=== PATIENT | male | born 1970 | race Caucasian/White ===

== ENCOUNTER 2018-07-10 07:52 | Emergency (ER) | payer MEDICAID ==
[2018-07-10] MEDS ORDERED: 0.9 % SODIUM CHLORIDE 1,000 ML BAG IV ONE (08:11)
[2018-07-10 08:21] LABS: HEMATOCRIT 49.8 % (42.0-52.0); MEAN CELL VOLUME 92.7 fl (81-97); MEAN CORPUSCULAR HEMOGLOBIN 31.7 pg (27-33); MEAN CORPUSCULAR HGB CONC 34.1 g/dl (32-36); PLATELET COUNT 371 K/uL (130-400); RED BLOOD COUNT 5.37 M/uL (4.40-5.70)
[2018-07-10 08:24] LABS: WHITE BLOOD COUNT W/O DIFF 27.6 K/uL (4.2-12.2)
[2018-07-10] MEDS ORDERED: PIPERACILLIN SODIUM/TAZOBACTAM 4.5 GM in 0.9 % SODIUM CHLORIDE 100ML 100 ML IVPB ONE (08:33)
[2018-07-10 08:37] LABS: BLOOD UREA NITROGEN 30 mg/dL (6-20); CREATININE 1.1 mg/dL (0.7-1.2); EST GLOMERULAR FILTRATION RATE > 60 mL/min
[2018-07-10 08:38] LABS: LIPASE 81 U/L (13-60); TOTAL PROTEIN 8.7 g/dL (6.6-8.7)
[2018-07-10 08:40] LABS: GLUCOSE,RANDOM 148 mg/dL (74-109)
[2018-07-10 08:42] LABS: ALT/SGPT 13 U/L (<41); AST/SGOT 14 U/L (10.0-50.0)
[2018-07-10 08:43] LABS: ALBUMIN 4.8 g/dL (4.0-5.0); ALKALINE PHOSPHATASE 75 U/L (40-129); BILIRUBIN,DIRECT < 0.2 mg/dL (0-0.3)
--- NOTE | 2018-07-10 08:45 | Emergency Department Record ---
History of Present Illness - General Chief Complaint: Abdominal Pain Stated Complaint: ABD PAIN RIGHT SIDE Time Seen by Provider: 07/10/18 08:10 Source: Patient, Family Mode of Arrival: Wheelchair Limitations: No limitations - History of Present Illness Initial Comments: pt awoke at 3am w severe pain in his r abd that radiates to his r neck and shoulder. it is constant 20/10 pain that gets worse w movement and breathing. he has nausea but no v/c/d. he denies motrin use or htn. he has never had anything like this MD Complaint: Abdominal pain Onset/Timin -: Hour(s) Location: RUQ, RLQ Radiation: Other (neck and r shoulder) Migration to: Other Severity scale (1-10): >10 Consistency: Constant Improves With: Nothing Worsens With: Movement Associated Symptoms: Nausea - Related Data Home Medications Medication Instructions Recorded Confirmed Last Taken No Home Med [NO HOME MEDS] 07/10/18 07/10/18 Unknown Allergies Allergy/AdvReac Type Severity Reaction Status Date / Time No Known Drug Allergies Allergy Verified 07/10/18 09:12 Travel Screening - Travel/Exposure Within Last 30 Days Have you traveled within the last 30 days?: No - Travel/Exposure Within Last Year Have you traveled outside the [place] in the last year?: No - Additonal Travel Details Have you been exposed to anyone with a communicable illness?: No Review of Systems Reviewed: No additional complaints except as noted below Constitutional: Reports: As per HPI. Denies: Chills, Fever, Malaise, Night sweats, Weakness, Weight change Eyes: Reports: As per HPI. Denies: Eye discharge, Eye pain, Photophobia, Vision change ENT: Reports: As per HPI. Denies: Congestion, Dental pain, Ear pain, Epistaxis , Hearing loss, Throat pain Respiratory: Reports: As per HPI. Denies: Cough, Dyspnea, Hemoptysis, Stridor, Wheezes Cardiovascular: Reports: As per HPI. Denies: Arrhythmia, Chest pain, Dyspnea on exertion, Edema, Murmurs, Orthopnea, Palpitations, Paroxysmal nocturnal dyspnea, Rheumatic Fever, Syncope Endocrine: Reports: As per HPI. Denies: Fatigue, Heat or cold intolerance, Polydipsia, Polyuria Gastrointestinal: Reports: As per HPI, Abdominal pain. Denies: Constipation, Diarrhea, Hematemesis, Hematochezia, Melena, Nausea, Vomiting Genitourinary: Reports: As per HPI. Denies: Dysuria, Frequency, Hematuria, Incontinence, Retention, Testicular pain, Testicular mass, Urgency Musculoskeletal: Reports: As per HPI, Neck pain. Denies: Arthralgia, Back pain , Gout, Joint swelling, Myalgia Skin: Reports: As per HPI. Denies: Bruising, Change in color, Change in hair/ nails, Lesions, Pruritus, Rash Neurological: Reports: As per HPI. Denies: Abnormal gait, Confusion, Headache, Numbness, Paresthesias, Seizure, Tingling, Tremors, Vertigo, Weakness Psychiatric: Reports: As per HPI. Denies: Anxiety, Auditory hallucinations, Depression, Homicidal thoughts, Suicidal thoughts, Visual hallucinations Hematological/Lymphatic: Reports: As per HPI. Denies: Anemia, Blood Clots, Easy bleeding, Easy bruising, Swollen glands Past Medical History - SOCIAL HISTORY Smoking Status: Light tobacco smoker (<10/day) Alcohol Use: None Drug Use: None Family Medical History Any Significant Family History?: No Physical Exam - General General Appearance: Alert, Oriented x3, Cooperative, Severe distress - Head Head exam: Normal inspection - Eye Eye exam: Normal appearance, PERRL, EOMI Pupils: Normal accommodation - ENT ENT exam: Normal exam, Mucous membranes moist, Normal external ear exam, Normal orophraynx Ear exam: Normal external inspection. negative: External canal tenderness Nasal Exam: Normal inspection. negative: Discharge, Sinus tenderness Mouth exam: Normal external inspection, Tongue normal Teeth exam: Normal inspection. negative: Dental caries Throat exam: Normal inspection. negative: Tonsillar erythema, Tonsillar exudate - Neck Neck exam: Normal inspection, Full ROM. negative: Tenderness - Respiratory Respiratory exam: Normal lung sounds bilaterally. negative: Respiratory distress - Cardiovascular Cardiovascular Exam: Regular rate, Normal rhythm, Normal heart sounds - GI/Abdominal GI/Abdominal exam: Guarding, Rebound, Rigid, Tenderness - Rectal Rectal exam: Deferred - exam: Deferred - Extremities Extremities exam: Normal inspection, Full ROM, Normal capillary refill. negative: Tenderness - Back Back exam: Reports: Normal inspection, Full ROM. Denies: Muscle spasm, Rash noted, Tenderness - Neurological Neurological exam: Alert, CN II-XII intact, Normal gait, Oriented X3 - Psychiatric Psychiatric exam: Normal affect, Normal mood - Skin Skin exam: Dry, Intact, Normal color, Warm Course Vital Signs 07/10/18 07:52 Temperature 98.5 F Pulse Rate 83 Respiratory 20 Rate Blood Pressure 118/90 Pulse Ox 96 - Reevaluation(s) Reevaluation #1: 07/10/18 09:25 ct shows free air and fluid Medical Decision Making - Lab Data Result diagrams: 07/10/18 08:00 07/10/18 08:00 Lab Results 07/10/18 Range/Units 08:00 WBC 27.6 H* (4.2-12.2) K/uL RBC 5.37 (4.40-5.70) M/uL Hgb 17.0 (14.0-18.0) gm/dl Hct 49.8 (42.0-52.0) % MCV 92.7 (81-97) fl MCH 31.7 (27-33) pg MCHC 34.1 (32-36) g/dl RDW 15.0 H (11.5-14.5) % Plt Count 371 (130-400) K/uL MPV 9.0 (7.4-10.4) fl Neutrophils % 73.0 (47-80) % Eosinophils % Not Reportable Basophils % Not Reportable Lymphocytes 11.0 L (16-45) % Monocytes 13.0 H (0-9) % Eosinophil Count 3.0 (0-6) % Disposition Disposition: Transfer Clinical Impression: Perforated abdominal viscus Disposition: Acute Care Hospital Transfer Transfer To: [facility] Reason For Transfer: needs surgery Accepting Physician: dr amaral Time Discussed w/Accepting Physician: 09:33 Forms: Patient Portal Access Quality - Quality Measures Quality Measures: N/A - Blood Pressure Screening Does Patient Have Any of the Following: No Blood Pressure Classification: Hypertensive Reading Systolic Measurement: 118 Diastolic Measurement: 90 Screening for High Blood Pressure: < Pre-Hypertensive BP, F/U Documented > [ [id number]] Pre-Hypertensive Follow-up Interventions: Follow-up with rescreen every year.
[2018-07-10] MEDS ORDERED: HYDROMORPHONE HCL 2 MG/ML VIAL IVP ONE ×2 (08:47→08:48)
[2018-07-10] MEDS ORDERED: ONDANSETRON HCL IV 4 MG/2 ML VIAL IVP ONE (08:47)
[2018-07-10] MEDS ORDERED: MORPHINE SULFATE 10 MG/ML VIAL IVP ONE ×2 (09:23→09:39)
--- NOTE | 2018-07-12 19:02 | CT ANGIOGRAM REPORT ---
EXAM: CT ANGIOGRAM AORTA CTA HISTORY: NECK AND ABDOMINAL PAIN. ELEVATED WHITE BLOOD COUNT. TECHNIQUE: CTA of the chest, abdomen, and pelvis performed initially prior to IV contrast. The patient was then injected intravenously with IV contrast and a postcontrast CTA of the chest, abdomen, and pelvis was performed. Please see the medical record for IV contrast specifics. Postprocessing on an independent workstation was performed with multiple 3D MIP series obtained. COMPARISON: None. ENCOUNTER: Initial. FINDINGS: On the precontrast images, mild calcification of the abdominal aorta is seen with none appreciably in the thoracic aorta. No calcified intima is seen to suggest a dissection. No calcified gallstones identified. No intrarenal calculi on either side. Note is made of some free fluid in the abdomen lateral to the liver and also some free intraperitoneal air. In the absence of any iatrogenic explanation, this is presumptive evidence for perforation of a hollow viscus. On the postcontrast CTA, no definite thoracic or abdominal aortic aneurysm or dissection is seen. Proximal aspects of the celiac axis, SMA, and bilateral renal arteries are all widely patent. ANAYELI is also patent. Origin of the ANAYELI not well demonstrated but beyond this the ANAYELI appears patent. Within the chest, some small peripheral bullae are seen in the lung apices, which may represent some mild change of paraseptal emphysema. There is some respiratory motion present but no definite pneumothorax seen and no acute alveolar infiltrate evident. Heart size is normal. No pleural or pericardial effusion evident. No definite hilar or mediastinal adenopathy seen. Within the abdomen, no definite hepatic, splenic, adrenal, pancreatic, or renal mass identified. Evaluation of the bowel extremely limited without oral contrast inherent in the CTA protocol. The colon diffusely has a mildly thick- walled appearance and a mild colitis cannot be excluded. I believe the appendix is identified as a normal-caliber structure with no appendicitis evident. The stomach and duodenum have a thick-walled appearance. This may just be due to incomplete distention but the descending portion of the duodenum is close to the hepatic flexure of the colon with some inflammatory-type change in this region as well as free air and I suspect the region of bowel perforation is either in the region of the hepatic flexure of the colon or duodenum. Clinical correlation is suggested. There is also some air high in the region of the stomach, difficult to determine if this may be some intramural air within the stomach and the stomach could also be the source of GI perforation. IMPRESSION: 1. NO DEFINITE THORACIC OR ABDOMINAL AORTIC DISSECTION OR ANEURYSM EVIDENT. 2. FREE INTRAPERITONEAL AIR AND FREE INTRAPERITONEAL FLUID. ASSUMING THERE IS NO IATROGENIC EXPLANATION FOR THE FREE AIR, THIS IS PRESUMPTIVE EVIDENCE FOR PERFORATION OF A HOLLOW VISCUS. DIFFUSE THICK-WALLED APPEARANCE OF THE COLON SUGGESTING A COLITIS, MOST PROMINENT IN THE REGION OF THE HEPATIC FLEXURE. SOURCE OF GI PERFORATION IS DIFFICULT TO DETERMINE BUT PROBABLY IN THE REGION OF THE HEPATIC FLEXURE OF THE COLON OR POSSIBLY ADJACENT DUODENUM. GASTRIC SOURCE IS ALSO POSSIBLE DESCRIBED ABOVE. SURGICAL CONSULTATION IS SUGGESTED. JOB NUMBER: [id number] [facility]
== END 2018-07-10 09:55 | disposition short-term general hospital (02) ==
LOC: ER 07:52
DX: K63.1 Perforation of intestine (nontraumatic) (principal); R11.0 Nausea; F17.210 Nicotine dependence, cigarettes, uncomplicated
CPT/HCPCS: 99285 ×2; 96365; 96375; 83690; 80076; 80048; 85027; 71275; 74175; Q9967; J2405; J1170; J2270; J2543; J7030